=== PATIENT | male | born 1945 | race Caucasian/White ===

== ENCOUNTER → 2018-10-19 09:34 | Outpatient (CLI) | payer BC ==
[2010-01-31 13:49] VITALS: BMI 22.8
--- NOTE | 2018-10-25 11:45 | ST ---
PATIENT:PRASANTH GUTIERREZ MEDICAL RECORD: [id number] SEX: M LOCATION:[facility] ORDER #: ADMISSION DATE: 10/19/18 AGE OF PATIENT: 72 REFERRING PHYSICIAN: INTERPRETING PHYSICIAN: ISAIAH ALDANA MD DATE OF SERVICE: 10/19/2018 PROCEDURE: Nuclear stress test. INDICATION: Angina, coronary artery disease, shortness of breath, hypertension. He was exercised on standard Maikol protocol for 6 minutes 30 seconds, terminated due to achievement of maximum target heart rate response with 33 mCi of sestamibi injected at peak stress, 10 mCi was used previously for rest images. FINDINGS: Gated SPECT reveals preserved ejection fraction at 58%; however, there is decreased thickening and brightening throughout the inferior segment. SPECT imaging Cardiolite was used as myocardial fusion agent. There is a fixed perfusion defect inferiorly, compatible with previous inferior myocardial infarction. There is no evidence of reversible ischemia. In fact, the defect improves with stress. OVERALL IMPRESSION: This is an abnormal nuclear stress test minorly in that there is a fixed perfusion defect inferiorly that improves with stress. No evidence of reversible ischemia. Ejection fraction is preserved at 58%. Stable nuclear stress test. Continue medical management of coronary artery disease and cardiac risk factors. TRANSINT:[id number] Voice Confirmation ID: [id number] DOCUMENT ID: [id number] ISAIAH ALDANA MD at 1145 CC: [id number] DICTATION DATE: 10/20/18 1623 [employer]ING CONSULTANT: 10/20/18 195 DEP CLI 10/19/18 [id number] [place] [id number]
== END | disposition home or self-care (01) ==
LOC: D.HCCARDIO 09:34
DX: I25.10 Atherosclerotic heart disease of native coronary artery without angina pectoris (principal)